=== PATIENT | female | born 1975 | race Caucasian/White ===

== ENCOUNTER 2021-04-13 16:31 | Observation (INO) | payer MEDICAID ==
[~2021-04-13] VITALS: Ht 154.9 cm; Wt 108.9 kg
[2021-04-13] MEDS ORDERED: RHO(D) IMMUNE GLOBULIN 300 MCG/SYR IM PRN (18:00)
== END 2021-04-13 18:40 | disposition home or self-care (01) ==
LOC: 8 EST LDRP 16:31
PROVIDERS: ADMIT Obstetrics & Gynecology; ATTEND Obstetrics & Gynecology
DX: Z34.93 Encounter for supervision of normal pregnancy, unspecified, third trimester (principal); Z3A.29 29 weeks gestation of pregnancy
CPT/HCPCS: 36415; 86850; 86886; 86900; 86901; 90384; 96372; 99281; G0378

== ENCOUNTER 2021-05-30 11:32 | Observation (INO) | payer MEDICAID ==
[~2021-05-30] VITALS: Ht 152.4 cm; Wt 110.7 kg
== END 2021-05-30 14:00 | disposition home or self-care (01) ==
LOC: 8 EST LDRP 11:32
PROVIDERS: ADMIT Obstetrics & Gynecology; ATTEND Obstetrics & Gynecology
DX: O30.003 Twin pregnancy, unspecified number of placenta and unspecified number of amniotic sacs, third trimester (principal); O09.523 Supervision of elderly multigravida, third trimester; Z3A.36 36 weeks gestation of pregnancy
CPT/HCPCS: 59025; 76815; 76818; G0378

== ENCOUNTER → 2021-06-09 | Outpatient (CLI) | payer MEDICAID ==
[~2021-06-09] MED LIST: PNV11TAB5 PO
== END | disposition home or self-care (01) ==
LOC: LAB 11:05
PROVIDERS: ATTEND Obstetrics & Gynecology
DX: Z01.812 Encounter for preprocedural laboratory examination (principal); Z20.822 Contact with and (suspected) exposure to COVID-19
CPT/HCPCS: 87426

== ENCOUNTER 2021-06-11 05:41 | Inpatient (IN) | payer MEDICAID ==
[~2021-06-11] VITALS: Ht 160 cm; Wt 111.1 kg
[2021-06-11] MEDS ORDERED: NALOXONE HCL 0.4 MG/ML 1ML VIAL IM PRN (06:30)
[2021-06-11] MEDS ORDERED: METHYLERGONOVINE MALEATE 0.2 MG/ML IM PRN (06:30)
[2021-06-11] MEDS: LACTATED RINGERS 1,000 ML IV SCH ×3 (06:30→14:53)
[2021-06-11] MEDS ORDERED: PNV11TAB5 PO (06:57)
[2021-06-11 07:25] LABS: BASOPHILS % 0.5 % (0.0-2.0); EOSINOPHILS % 1.7 % (0.0-5.0); HEMOGLOBIN. 11.6 g/dL (12.0-16.0); LYMPHOCYTES % 20.8 % (20.0-50.0); MEAN CORPUSCULAR HEMOGLOBIN 29.6 pg (28.0-32.0); PLATELET 151 x1000/uL (130-400); RED BLOOD CELL COUNT 3.93 mill/uL (4.2-5.4); RED CELL DISTRIBUTION WIDTH 14.9 % (11.6-14.6)
[2021-06-11] MEDS ORDERED: CITRIC ACID/SODIUM CITRATE SOLN 30ML UDC PO NR (08:00)
[2021-06-11 08:01] LABS: CLARITY URINE CLEAR (CLEAR); COLOR URINE YELLOW (YELLOW); KETONES URINE NEGATIVE (NEGATIVE); LEUKOCYTE ESTERASE URINE NEGATIVE (NEGATIVE); NITRITE URINE NEGATIVE (NEGATIVE); OCCULT BLOOD URINE NEGATIVE (NEGATIVE); PH URINE 6.5 (4.5-8.0); PROTEIN URINE NEGATIVE (NEGATIVE); SPECIFIC GRAVITY URINE 1.021 (1.005-1.030)
[2021-06-11 08:05] LABS: PARTIAL THROMBOPLASTIN TIME 27.7 sec (23.4-31.0); PROTHROMBIN TIME 10.3 sec (9.6-11.0)
[2021-06-11 08:37] LABS: *AMPHETAMINES SCREEN URINE NEGATIVE (NEGATIVE); *BARBITURATES SCREEN URINE NEGATIVE (NEGATIVE); *BENZODIAZEPINES SCREEN URINE NEGATIVE (NEGATIVE); *COCAINE SCREEN URINE NEGATIVE (NEGATIVE); METHADONE URINE SCREEN NEGATIVE (NEGATIVE)
[2021-06-11 08:38] LABS: CANNABINOID URINE SCREEN NEGATIVE (NEGATIVE); OPIATES URINE SCREEN NEGATIVE (NEGATIVE); PHENCYCLIDINE URINE SCREEN NEGATIVE (NEGATIVE)
[2021-06-11] MEDS ORDERED: OXYTOCIN 10 UNITS/ML 1ML ONE (09:03)
[2021-06-11] MEDS ORDERED: FENTANYL CITRATE/PF 50MCG/ML 2ML VIAL ONE (09:03)
[2021-06-11] MEDS ORDERED: CEFAZOLIN SODIUM 1000MG/VIAL ONE (09:03)
[2021-06-11] MEDS ORDERED: PHENYLEPHRINE HCL 10 MG/ML 1ML (IV VIAL) IV ONE (09:03)
[2021-06-11] MEDS ORDERED: EPHEDRINE SULFATE 50MG/ML VIAL ONE (09:03)
[2021-06-11] MEDS ORDERED: MORPHINE SULFATE/PF 1MG/ML 10ML AMP ONE (09:03)
[2021-06-11] MEDS ORDERED: ONDANSETRON HCL 4MG/2ML INJ ONE (09:03)
[2021-06-11 10:16] LABS: HEPATITIS B SURFACE ANTIGEN NEGATIVE
[2021-06-11] MEDS ORDERED: KETOROLAC 60MG/2ML VIAL IM ONE (16:35)
[2021-06-11] MEDS ORDERED: DIPHENHYDRAMINE 50MG/ML VIAL ONE (16:35)
[2021-06-11] MEDS ORDERED: LIDOCAINE HCL/PF 1% 10 MG/ML 5ML VIAL ONE (16:44)
[2021-06-11] MEDS ORDERED: HEMORRHOIDAL SUPP PR PRN (17:45)
[2021-06-11] MEDS ORDERED: ONDANSETRON HCL 4MG/2ML INJ IV PRN (17:45)
[2021-06-11] MEDS ORDERED: IBUPROFEN 400MG TABLET PO PRN (17:45)
[2021-06-11] MEDS ORDERED: DIPHENHYDRAMINE 25MG CAPSULE PO PRN (17:45)
[2021-06-11] MEDS ORDERED: DEXT 5%/LR + PITOCIN 20UNITS/L 1,000 ML IV SCH (17:45)
[2021-06-11] MEDS ORDERED: LANOLIN OINT 7GM TUBE TOP PRN (17:45)
[2021-06-11] MEDS ORDERED: HYDROCODONE/ACETAMINOPHEN 5/325MG TABLET PO PRN (17:45)
[2021-06-11] MEDS ORDERED: BISACODYL 10MG SUPP PR PRN (17:45)
[2021-06-11] MEDS ORDERED: RHO(D) IMMUNE GLOBULIN 300 MCG/SYR IM PRN (17:45)
[2021-06-11] MEDS: DEXT 5%/LR + PITOCIN 20UNITS/L 1,000 ML IV SCH (18:24)
[2021-06-11] MEDS ORDERED: BUTORPHANOL TARTRATE 2 MG/ML VIAL IV PRN ×2 (19:18→19:45)
[2021-06-11] MEDS ORDERED: KETOROLAC 30MG/ML VIAL IV SCH (19:45)
[2021-06-11] MEDS ORDERED: NALOXONE HCL 0.4 MG/ML 1ML VIAL IV PRN (19:45)
[2021-06-11] MEDS ORDERED: DIPHENHYDRAMINE 50MG/ML VIAL IV PRN (19:45)
[2021-06-11 20:00] VITALS: BP 122/72
[2021-06-11 20:30] VITALS: BP 130/68
[2021-06-11 21:00] VITALS: BP 129/79
[2021-06-11] MEDS ORDERED: DOCUSATE SODIUM 100MG CAPSULE PO SCH (21:00)
[2021-06-12 00:05] VITALS: BP 117/66
[2021-06-12 03:00] VITALS: BP 112/70
[2021-06-12] MEDS: DEXT 5%/LR + PITOCIN 20UNITS/L 1,000 ML IV SCH (03:15)
[2021-06-12 06:28] LABS: BASOPHILS % 0.3 % (0.0-2.0); EOSINOPHILS % 0.7 % (0.0-5.0); HEMATOCRIT. 35.9 % (36.0-48.0); HEMOGLOBIN. 11.9 g/dL (12.0-16.0); LYMPHOCYTES % 12.6 % (20.0-50.0); MEAN CORPUSCULAR HEMOGLOBIN 29.5 pg (28.0-32.0); MEAN CORPUSCULAR VOLUME 89.5 fL (81.0-99.0); MEAN PLATELET VOLUME 10.9 fl (7.4-10.4); MONOCYTES % 9.2 % (2.0-8.0); NEUTROPHILS % 77.2 % (40.0-76.0); PLATELET 141 x1000/uL (130-400); RED BLOOD CELL COUNT 4.01 mill/uL (4.2-5.4); RED CELL DISTRIBUTION WIDTH 14.8 % (11.6-14.6)
[2021-06-12 07:30] VITALS: BP 126/74
[2021-06-12] MEDS: MAGNESIUM/ALUMINUM HYDROXIDE/SIMETHICONE 30ML UDC PO SCH ×4 (08:23→20:51)
[2021-06-12] MEDS: FERROUS SULFATE 325MG TABLET PO SCH ×3 (08:23→18:17)
[2021-06-12] MEDS: PRENATAL VIT/FE FUMARATE/FA TABLET PO SCH (08:23)
[2021-06-12] MEDS: SIMETHICONE 80MG TABLET CHEW PO SCH ×4 (08:24→20:51)
[2021-06-12 15:12] VITALS: BP 111/70
[2021-06-12 20:50] VITALS: BP 117/70
[2021-06-12] MEDS: ACETAMINOPHEN WITH CODEINE 300/30MG TABLET PO PRN (21:32)
[2021-06-13 04:20] VITALS: BP 112/72
[2021-06-13] MEDS: FERROUS SULFATE 325MG TABLET PO SCH ×2 (07:30→12:30)
[2021-06-13] MEDS: MAGNESIUM/ALUMINUM HYDROXIDE/SIMETHICONE 30ML UDC PO SCH ×2 (07:30→12:30)
[2021-06-13] MEDS: SIMETHICONE 80MG TABLET CHEW PO SCH ×2 (08:00→13:00)
[2021-06-13 08:15] VITALS: BP 115/68
[2021-06-13] MEDS: PRENATAL VIT/FE FUMARATE/FA TABLET PO SCH (08:46)
[2021-06-13] MEDS: ACETAMINOPHEN WITH CODEINE 300/30MG TABLET PO PRN (11:55)
== END 2021-06-13 16:00 | disposition home or self-care (01) | DRG 539 ==
LOC: 8EST 05:41 → UNDOADMOB 05:41 → 8 EST LDRP 05:41 → INTOOBSV 05:41 → OBSVTOIN 05:41
PROVIDERS: ADMIT Obstetrics & Gynecology; ATTEND Obstetrics & Gynecology
PROC: 10D00Z1 Extraction of Products of Conception, Low, Open Approach (ICD-10-PCS; principal; 2021-06-11)
PROC: 0UB70ZZ Excision of Bilateral Fallopian Tubes, Open Approach (ICD-10-PCS; 2021-06-11)
DX: O34.211 Maternal care for low transverse scar from previous cesarean delivery (principal); E11.65 Type 2 diabetes mellitus with hyperglycemia; O32.1XX0 Maternal care for breech presentation, not applicable or unspecified; Z37.0 Single live birth; Z30.2 Encounter for sterilization; Z3A.38 38 weeks gestation of pregnancy
CPT/HCPCS: 36415; 80305; 81003; 82947; 82962; 85025; 86592; 86703; 86762; 86850; 86886; 86900; 87340; 88302; 88307; G0378; J0595; J0690; J1200; J1885; J2274; J2370; J2405; J2590; J3010; J3490; J7120; A4315